=== PATIENT | female | born 2000 | race African-American/Black ===

== ENCOUNTER 2021-01-07 11:18 | Observation (INO) | payer MEDICAID ==
[~2021-01-07] VITALS: Ht 162.6 cm; Wt 55.0 kg
[~2021-01-07 11:18] MED LIST: PREN1TAB10 PO
[2021-01-07] MEDS ORDERED: CEFAZOLIN PMX 1GM/50ML IVPB ONE (11:30)
[2021-01-07 11:33] VITALS: BP 128/72
[2021-01-07] MEDS ORDERED: PLEASE ENTER HEIGHT AND WEIGHT MC SCH (12:00)
[2021-01-07] MEDS ORDERED: CEFAZOLIN PMX 1GM/50ML 50 ML IVPB ONE (12:00)
[2021-01-07] MEDS: LACTATED RINGERS 1,000 ML IV SCH ×2 (12:14→16:38)
[2021-01-07 12:17] LABS: AMPHETAMINE SCREEN, URINE Negative (Negative); BARBITURATE SCREEN, URINE Negative (Negative); BENZODIAZEPINE SCREEN, URINE Negative (Negative); CANNABINOID SCREEN, URINE Positive (Negative); COCAINE SCREEN, URINE Negative (Negative); METHADONE SCREEN, URINE Negative (Negative); OPIATE SCREEN, URINE Negative (Negative)
[2021-01-07 12:23] LABS: MEAN CORPUSCULAR HEMOGLOBIN 31.9 pg (27.0-34.8); MEAN CORPUSCULAR HGB CONC 34.4 g/dL (32.4-35.8); MEAN PLATELET VOLUME 8.4 fL (7.4-10.4); PLATELET COUNT 203 x10^3/uL (130-400); RED BLOOD COUNT 3.88 x10^6/uL (3.82-5.3); RED CELL DISTRIBUTION WIDTH 13.6 % (9.6-15.2)
[2021-01-07] MEDS ORDERED: CEFAZOLIN 1,000 MG ONE ×2 (16:50)
[2021-01-07] MEDS: D5%-LACTATED RINGERS 1,000 ML IV SCH ×2 (16:51→16:55)
[2021-01-07] MEDS ORDERED: D5%-0.9% NACL 1,000 ML IV SCH (17:00)
[2021-01-07] MEDS ORDERED: SODIUM CITRATE/CITRIC ACID 15 ML UDC ONE (17:46)
[2021-01-07] MEDS ORDERED: METOCLOPRAMIDE 5 MG/ML, 2ML ONE (17:46)
[2021-01-07] MEDS ORDERED: METOCLOPRAMIDE 5 MG/ML, 2ML IVPush ONE (18:00)
[2021-01-07] MEDS ORDERED: SODIUM CITRATE/CITRIC ACID 30 ML UDC PO ONE (18:00)
[2021-01-07] MEDS ORDERED: ONDANSETRON 2MG/ML, 2ML IVPush PRN (19:00)
[2021-01-07] MEDS ORDERED: DIPHENHYDRAMINE 50 MG/ML, 1ML IVPush PRN (19:00)
[2021-01-07] MEDS ORDERED: EPHEDRINE 50 MG/ML, 1ML IVPush PRN (19:00)
[2021-01-07] MEDS ORDERED: ACETAMINOPHEN 325 MG TABLET PO PRN ×2 (19:00→19:30)
[2021-01-07] MEDS ORDERED: ONDANSETRON 2MG/ML, 2ML ONE (19:18)
[2021-01-07] MEDS ORDERED: INDOMETHACIN 50 MG CAPSULE ONE (21:50)
[2021-01-07] MEDS ORDERED: INDOMETHACIN 50 MG CAPSULE PO ONE (22:00)
== END 2021-01-07 23:28 | disposition home or self-care (01) ==
LOC: LDOP 11:18 → LDIP 11:22
PROVIDERS: ADMIT Obstetrics & Gynecology Maternal & Fetal Medicine; ATTEND Obstetrics & Gynecology Maternal & Fetal Medicine
DX: O26.872 Cervical shortening, second trimester (principal); Z20.822 Contact with and (suspected) exposure to COVID-19; O99.512 Diseases of the respiratory system complicating pregnancy, second trimester; J45.909 Unspecified asthma, uncomplicated; O99.322 Drug use complicating pregnancy, second trimester; F12.90 Cannabis use, unspecified, uncomplicated; Z3A.22 22 weeks gestation of pregnancy; Z88.0 Allergy status to penicillin; Z79.899 Other long term (current) drug therapy
CPT/HCPCS: 36415; 59320; 80307; 85027; 86592; 86762; 86850; 86900; 87340; 87491; 87591; 87635; 87806; 96361; 96374; 96375; G0378; J0690; J2405; J2765; J7120; J7121; G0475